=== PATIENT | female | born 2000 | race Two or more races ===

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

== ENCOUNTER 2019-02-01 11:08 | Emergency (ER) | payer MEDICARE, MEDICAID ==
[~2019-02-01] VITALS: Ht 114.3 cm; Wt 34.9 kg
--- NOTE | 2019-02-01 11:08 | NUR ---
BIB MOTHER FOR FEVER AND CHILLS X 3DAYS; TEMP AT TRIAGE 98.4. PT ALSO C/O BURNING SENSATION IN ABDOMEN AND HEADACHE "I FEEL LIKE I'M GOING TO FAINT". TO ER BED 3, HOOKED TO MONITOR, CHANGED TO BRAIN, PT AOX4 , NOT IN DISTRESS, AWAITING MD MENDOZA
--- NOTE | 2019-02-01 11:25 | NUR ---
DR SHAH AT BEDSIDE FOR EVAL.
[2019-02-01] MEDS ORDERED: IV NS 0.9% 1,000 ML BAG IV ONE (11:30)
[2019-02-01] MEDS ORDERED: CEFTRIAXONE 1GM BAG (ER ONLY) 50 ML IV ONE ×2 (11:30→11:33)
--- NOTE | 2019-02-01 11:35 | NUR ---
PT WITH IMPERFORATE ANUS, MADE AWARE
[2019-02-01 11:38] LABS: APPEARANCE,URINE Slightly Cloudy (CLEAR); BILIRUBIN,URINE MODERATE (NEGATIVE); BLOOD, URINE Negative Ery/uL (NEGATIVE); KETONES,URINE 15 (NEGATIVE); LEUKOCYTE ESTERASE ,URINE Trace (NEGATIVE); NITRITE, URINE Negative (NEGATIVE); PROTEIN,URINE 30 mg/dl (NEGATIVE); UGLUCOSE Negative (NEGATIVE)
[2019-02-01 11:39] LABS: COLOR,URINE Dark Yellow (YELLOW)
[2019-02-01 11:43] LABS: EOSINOPHILS % (AUTO) 3.3 % (0.0-6.0); HEMATOCRIT 45 % (33-45); HEMOGLOBIN 15.2 g/dL (11.5-14.8); LYMPHOCYTES # (AUTO) 0.2 /CMM (0.8-4.8); LYMPHOCYTES % (AUTO) 2.2 % (20.0-44.0); MEAN CORPUSCULAR HGB CONC 34 g/dl (31.0-36.0); MEAN CORPUSCULAR VOLUME 97 fL (82-100); MONOCYTES # (AUTO) 0.3 /CMM (0.1-1.30); MONOCYTES % (AUTO) 3.1 % (2.0-12.0); NEUTROPHILS # (AUTO) 10.1 /CMM (1.8-8.9); NEUTROPHILS % (AUTO) 91.4 % (43.0-81.0); PLATELET COUNT (AUTO) 231 /CMM (150-450); RED BLOOD CELL COUNT(AUTO) 4.62 MIL/uL (4.0-5.2)
[2019-02-01 11:46] LABS: BACTERIA,URINE Few /HPF (None Seen); RBC,URINE 0-3 /HPF (0-2); SQUAMOUS EPITHELIAL CELL,UR Few /HPF (None Seen)
[2019-02-01 11:54] LABS: CALCIUM, SERUM 8.5 mg/dL (8.5-10.1); CREATININE 0.8 mg/dL (0.6-1.3); POTASSIUM 3.3 mmol/L (3.5-5.1)
[2019-02-01 12:00] LABS: ALBUMIN 3.3 g/dL (3.4-5.0); BILIRUBIN,DIRECT 0.3 mg/dL (0.0-0.2); TOTAL PROTEIN, SERUM 6.4 g/dL (6.4-8.2)
[2019-02-01] MEDS ORDERED: ONDANSETRON HCL/PF - ER 4 MG/2 ML VIAL IV ONE (12:30)
[2019-02-01] MEDS ORDERED: ONDANSETRON HCL/PF 4 MG/2 ML VIAL ONE (12:31)
--- NOTE | 2019-02-01 12:31 | NUR ---
PT NOTED W VOMITING. MADE MD AWARE. RECEIVE VERBAL ORDER OF 8MG ZOFRAN IVP. CARRIED OUT.
--- NOTE | 2019-02-01 12:41 | NUR ---
IV removed. Catheter intact and site benign. Pressure and 4x4 applied to site. No bleeding noted.Patient discharged to home with mother in stable condition. Written and verbal after care instructions given. Patientand mother verbalizes understanding of instruction.
[2019-02-01 12:46] VITALS: BP 104/52
== END 2019-02-01 12:47 | disposition home or self-care (01) ==
LOC: ER 11:12
DX: N39.0 Urinary tract infection, site not specified (principal); Z98.890 Other specified postprocedural states
CPT/HCPCS: 36415; 80048; 80076; 81001; 85025; 87086; 96365; 96375; 99283; J0696; J2405 ×2; J7030; 81000-TC

== ENCOUNTER 2019-09-07 21:52 | Emergency (ER) | payer MEDICARE, MEDICAID ==
[~2019-09-07] VITALS: Ht 114.3 cm; Wt 35.4 kg
[2019-09-07 21:52] VITALS: BP 109/65
[~2019-09-07 21:52] MED LIST changes: +OXYB-58 PO; -OXYB5TAB PO
== END 2019-09-08 00:04 | disposition home or self-care (01) ==
LOC: ER 21:53
DX: B30.9 Viral conjunctivitis, unspecified (principal); J06.9 Acute upper respiratory infection, unspecified; Z98.890 Other specified postprocedural states; Z79.899 Other long term (current) drug therapy

== ENCOUNTER 2019-09-23 15:24 | Emergency (ER) | payer MEDICARE, OTHER ==
[~2019-09-23] VITALS: Ht 114.3 cm; Wt 38.1 kg
--- NOTE | 2019-09-23 15:49 | NUR ---
NECK SORENESS, LUE NUMBNESS AND SOB UPON WAKING UP THIS AM. DENIES PAIN AND SOB UPON ASSESSMENT. REPORTS HX OF ANXIETY. NO ACUTE DISTRESS NOTED. DENIES OTHER MEDICAL COMPLAINTS AT THIS TIME. ON MONITOR. SEEN BY GINA HERNADEZ. CARRYING OUT ORDERS.
--- NOTE | 2019-09-23 15:53 | NUR ---
DELORES VILCHIS AT BEDSIDE FOR EKG
--- NOTE | 2019-09-23 16:51 | NUR ---
PT. VERBALIZED UNDERSTANDING OF AFTERCARE INSTRUCTIONS.Patient discharged to home in stable condition. Written and verbal after care instructions given. Patient verbalizes understanding of instruction.
[2019-09-23 17:02] VITALS: BP 120/68
== END 2019-09-23 17:02 | disposition home or self-care (01) ==
LOC: ER 15:33
DX: F41.9 Anxiety disorder, unspecified (principal); Z99.3 Dependence on wheelchair; Z87.798 Personal history of other (corrected) congenital malformations; Z98.890 Other specified postprocedural states; Z91.040 Latex allergy status; Z79.899 Other long term (current) drug therapy

== ENCOUNTER 2023-07-14 19:04 | Emergency (ER) | payer MEDICARE, OTHER ==
[~2023-07-14] VITALS: Ht 124.5 cm; Wt 39.9 kg
[2023-07-14 19:43] VITALS: TEMP 98.1
[2023-07-14 19:46] VITALS: BP 118/80; O2SAT 99
[2023-07-14] MEDS ORDERED: HYDROCODONE/APAP 5/325MG TABLET ONE (19:55)
[2023-07-14] MEDS ORDERED: IBUPROFEN 400 MG TABLET ONE (19:55)
[2023-07-14] MEDS ORDERED: IBUPROFEN 400 MG TABLET PO ONE (20:00)
[2023-07-14] MEDS ORDERED: HYDROCODONE/APAP 5/325MG TABLET PO ONE (20:00)
== END 2023-07-14 20:09 | disposition left against medical advice (07) ==
LOC: ER 19:13
DX: H20.00 Unspecified acute and subacute iridocyclitis (principal); R51.9 Headache, unspecified; Q05.9 Spina bifida, unspecified; Z88.8 Allergy status to other drugs, medicaments and biological substances; Z60.2 Problems related to living alone

== ENCOUNTER 2024-12-03 19:20 | Emergency (ER) | payer MEDICARE, OTHER ==
[~2024-12-03] VITALS: Ht 91.4 cm; Wt 37.2 kg
[2024-12-03] MEDS: IV NS 0.9% 1,000 ML IV ONE (20:30)
[2024-12-03 20:34] LABS: BASOPHILS % (AUTO) 0.2 % (0.0-2.0); EOSINOPHILS % (AUTO) 0.6 % (0.0-6.0); HEMATOCRIT 41 % (33-45); HEMOGLOBIN 13.9 g/dL (11.5-14.8); LYMPHOCYTES # (AUTO) 0.3 K/uL (0.8-4.8); LYMPHOCYTES % (AUTO) 4.3 % (20.0-44.0); MEAN CORPUSCULAR HEMOGLOBIN 32 PG (26.0-33.0); MEAN CORPUSCULAR HGB CONC 34 g/dl (31.0-36.0); MEAN CORPUSCULAR VOLUME 94 fL (82-100); MONOCYTES # (AUTO) 0.3 K/uL (0.1-1.30); MONOCYTES % (AUTO) 3.5 % (2.0-12.0); NEUTROPHILS # (AUTO) 7.2 K/uL (1.8-8.9); NEUTROPHILS % (AUTO) 91.4 % (43.0-81.0); PLATELET COUNT (AUTO) 297 K/uL (150-450); RED BLOOD CELL COUNT(AUTO) 4.38 MIL/uL (4.0-5.2); RED CELL DISTRIBUTION WIDTH 12.7 % (11.5-15.0); WHITE BLOOD COUNT (AUTO) 7.9 K/uL (4.3-11.0)
[2024-12-03] MEDS ORDERED: ACETAMINOPHEN 325 MG TABLET ONE (20:36)
[2024-12-03] MEDS ORDERED: CEFTRIAXONE 1GM BAG (ER ONLY) 50 ML IV ONE (20:36)
[2024-12-03] MEDS: CEFTRIAXONE 1GM BAG (ER ONLY) 50 ML IV ONE (20:41)
[2024-12-03] MEDS: IV NS 0.9% 1,000 ML BAG IV ONE ×2 (20:42→22:28)
[2024-12-03] MEDS: ACETAMINOPHEN 325 MG TABLET PO ONE (20:42)
[2024-12-03 20:48] LABS: CALCIUM, SERUM 8.8 mg/dL (8.5-10.1); CREATININE 0.6 mg/dL (0.6-1.3); POTASSIUM 3.9 mmol/L (3.5-5.1)
[2024-12-03 21:43] LABS: APPEARANCE,URINE CLEAR (CLEAR); BILIRUBIN,URINE Negative (NEGATIVE); BLOOD, URINE Negative Ery/uL (NEGATIVE); COLOR,URINE YELLOW (YELLOW); KETONES,URINE Negative (NEGATIVE); LEUKOCYTE ESTERASE ,URINE Negative (NEGATIVE); PROTEIN,URINE Negative (NEGATIVE); UGLUCOSE Negative (NEGATIVE); UROBILINOGEN,URINE 0.2 EU/dL (0.2)
[2024-12-03 21:47] LABS: NITRITE, URINE POSITIVE (NEGATIVE); PREGNANCY TEST URINE QUAL NEGATIVE (NEGATIVE)
[2024-12-03 21:50] LABS: ADD URINE CULTURE YES; BACTERIA,URINE 1+ /HPF (None Seen)
[2024-12-03 22:28] VITALS: BP 95/67; TEMP 99.8; O2SAT 98
[2024-12-03 23:07] LABS: BILIRUBIN,DIRECT 0.1 mg/dL (0.0-0.2); BILIRUBIN,TOTAL 0.2 mg/dL (0.2-1.0)
[2024-12-03 23:10] LABS: LACTIC ACID REFLEX 1.7 mmol/L (0.4-1.9)
[2024-12-04] MEDS ORDERED: MAG HYDROX/AL HYDROX/SIMETH 30 ML UDC PO PRN
[2024-12-04] MEDS ORDERED: Z GUARD REMEDY 4 OZ OINT TP PRN
[2024-12-04] MEDS ORDERED: ONDANSETRON HCL/PF 4 MG/2 ML VIAL IVP PRN
[2024-12-04] MEDS ORDERED: MAGNESIUM HYDROXIDE 30 ML UDC PO PRN
[2024-12-04] MEDS ORDERED: ZOLPIDEM TARTRATE 5 MG TABLET PO PRN
[2024-12-04] MEDS ORDERED: ACETAMINOPHEN 325 MG TABLET PO PRN
[2024-12-04] MEDS ORDERED: CEFTRIAXONE 1 G in IV D5W 50 ML IV SCH
== END 2024-12-04 00:29 | disposition short-term general hospital (02) ==
LOC: ER 19:29
DX: N39.0 Urinary tract infection, site not specified (principal); Q05.9 Spina bifida, unspecified; E78.5 Hyperlipidemia, unspecified; G82.20 Paraplegia, unspecified; I10 Essential (primary) hypertension; M41.9 Scoliosis, unspecified; Z99.3 Dependence on wheelchair; Z60.2 Problems related to living alone; Z79.899 Other long term (current) drug therapy; Z20.822 Contact with and (suspected) exposure to COVID-19
CPT/HCPCS: 99285; 96365; 71045; 96361; 87426; 93005; 82247; 82248; 85025; 80048; 87040 ×2; 83605 ×2; 84703; 81001; 36415; J0696